=== PATIENT | female | born 1995 | race Caucasian/White ===

== ENCOUNTER 2018-04-19 14:00 | Emergency (ER) | payer SELFPAY ==
[2018-04-19 14:09] VITALS: BP 107/69; PULSE 95; TEMP 100; BMI 23.2
--- NOTE | 2018-04-19 14:15 | PDOC ---
History of Present Illness - General Chief Complaint: Cold Symptoms Stated Complaint: SORE THROAT FEVER HEADACHE Time Seen by Provider: 04/19/18 14:10 History Source: Patient (Patient along with report she is having sore throat , blisters in the mouth. Had similar (without fever) few months ago while in her [place] [facility]. ) Exam Limitations: No Limitations - History of Present Illness Timing/Duration: 24 hours Severity: mild, moderate Modifying Factors: improves with: cold therapy Associated Symptoms: reports: fever/chills Past History - Past Medical History Allergies/Adverse Reactions: Allergies Allergy/AdvReac Type Severity Reaction Status Date / Time No Known Allergies Allergy Unverified 04/19/18 14:01 Home Medications: Ambulatory Orders Diphenhydramine [Benadryl Oral Solution -] 12.5 mg PO Q4H #210 ml 04/19/18 Lidocaine 4% Topical [Xylocaine 4% Topical -] 1 applic MM TID #1 btl 04/19/18 Mag Hydrox/Al Hydrox/Simeth [Mylanta *Suspension*] 30 ml PO ONCE #1 cup COPD: No Other medical history: DENIES - Suicide/Smoking/Psychosocial Hx Smoking History: Never smoked Have you smoked in the past 12 months: No Information on smoking cessation initiated: No Hx Alcohol Use: No Drug/Substance Use Hx: No Substance Use Type: None *Physical Exam - Vital Signs Last Vital Signs Temp Pulse Resp BP Pulse Ox 100 F H 95 H 16 107/69 98 04/19/18 14:01 04/19/18 14:01 04/19/18 14:01 04/19/18 14:01 04/19/18 14:01 *DC/Admit/Observation/Transfer Diagnosis at time of Disposition: Viral stomatitis - Discharge Dispostion Disposition: HOME Condition at time of disposition: Improved Decision to Admit order: No - Prescriptions Prescriptions: Diphenhydramine [Benadryl Oral Solution -] 12.5 mg PO Q4H #210 ml Lidocaine 4% Topical [Xylocaine 4% Topical -] 1 applic MM TID #1 btl Mag Hydrox/Al Hydrox/Simeth [Mylanta *Suspension*] 30 ml PO ONCE #1 cup - Referrals - Patient Instructions Printed Discharge Instructions: Hand, Foot, and Mouth Disease Additional Instructions: Fluids, Liquid Motrin every 6 hours as needed - Post Discharge Activity
[2018-04-19] MEDS ORDERED: LIDOCAINE VISCOUS 2% ORAL/TOP 20 ML UNIT-DOSE CUP MM ONE (14:45)
[2018-04-19] MEDS ORDERED: diphenhydrAMINE HCL 12.5 MG/5 ML UNIT-DOSE CUPS PO ONE (14:46)
[2018-04-19] MEDS ORDERED: MAG HYDROX/AL HYDROX/SIMETH 30 ML UNIT-DOSE CUP PO ONE (14:51)
[2018-04-19] MEDS ORDERED: LIDOCAINE VISCOUS 2% ORAL/TOP 20 ML UNIT-DOSE CUP ONE (14:53)
[2018-04-19] MEDS ORDERED: MAG HYDROX/AL HYDROX/SIMETH 30 ML UNIT-DOSE CUP ONE (14:53)
[2018-04-19] MEDS ORDERED: diphenhydrAMINE HCL 12.5 MG/5 ML BULK BOTTLE ONE (14:53)
[2018-04-19] MEDS ORDERED: IBUPROFEN 100 MG/5 ML UNIT DOSE CUPS PO ONE (15:29)
[2018-04-19] MEDS ORDERED: IBUPROFEN 100 MG/5 ML UNIT DOSE CUPS ONE (15:29)
== END 2018-04-19 15:41 | disposition home or self-care (01) ==
LOC: FER 14:00
DX: K12.1 Other forms of stomatitis (principal); B97.89 Other viral agents as the cause of diseases classified elsewhere
CPT/HCPCS: 87070; 87186; 87430; 99281-25